=== PATIENT | male | born 1990 | race Caucasian/White ===

== ENCOUNTER 2021-03-09 11:48 | Emergency (ER) | payer SELFPAY ==
[2021-03-09 12:01] VITALS: BP 141/69; PULSE 80; RESP 20; TEMP 36.7; O2SAT 98
--- NOTE | 2021-03-09 12:33 | ED.WOUNDLAC ---
HPI - Wound/Laceration General Chief Complaint: Wound/Laceration Stated Complaint: cut finger Time Seen by Provider: 03/09/21 12:15 Source: patient and family Mode of arrival: ambulatory Limitations: no limitations History of Present Illness HPI narrative: Patient comes in with superficial wound to ring finger on the tip of the right hand. There is some very small amount of skin avulsion from the tip of that finger. He says this wound came from a circular saw. Nothing I see looks as though it requires sutures. He evidently came in thinking he needed sutures, but wound is quite superficial, and looks clean. THis evidently happened from a circular saw barely touching his finger. He had a previous laceration from a circular saw that cut the bone and required sutures. It is evident he thought this was a similar wound. No other signs or symptoms. Onset (ago): minute(s) Location: other (finger) Patient tetanus UTD: No (He refuses tetnas now) Associated symptoms: none Related Data Home Medications Medication Instructions Recorded Confirmed No Home Medications 03/09/21 03/09/21 Allergies Allergy/AdvReac Type Severity Reaction Status Date / Time No Known Allergies Allergy Unverified 03/09/21 12:06 Review of Systems Constitutional: Constitutional: Reports no additional constitutional complaints Eyes: Eyes: Reports no additional eye complaints ENT: Reports system reviewed and no additional complaints, except as documented Cardiovascular: Cardiovascular: Reports no additional cardiovascular complaints Respiratory: Respiratory: Reports no additional respiratory complaints Gastrointestinal: Gastrointestinal: Reports no additional gastrointestinal complaints Genitourinary: Genitourinary: Reports no additional male genitourinary complaints Musculoskeletal: Musculoskeletal: Reports no additional musculoskeletal complaints Integumentary/Breasts: Skin/Breast: Reports system reviewed and no additional complaints, except as docu Neurologic: Reports system reviewed and no additional complaints, except as documented Psychiatric: Psychiatric: Reports no additional psychiatric complaints Endocrine: Endocrine: Reports no additional endocrine complaints Hematologic/Lymphatic: Hematologic/Lymphatic: Reports no additional hematologic/lymphatic complaints Allergic/Immunologic: Allergic/Immunologic: Reports no additional allergic/immunologic complaints FORMERLY [facility], 1928–1983 Past Medical History Medical History (Updated 03/09/21 @ 20:12 by Marcin Lambert MD) Finger laceration No significant medical problems Family History Family History (Updated 03/09/21 @ 20:12 by Marcin Lambert MD) Other No significant family history Social History Social History (Updated 03/09/21 @ 20:13 by Marcin Lambert MD) Smoking status: Never smoker Alcohol intake: current Alcohol use details: minimal Living arrangements: with family Gender identity (if verbalized by the patient): Male Sexual Orientation (if Verbalized by the Patient): Straight or Heterosexual Exam Const: General: no acute distress Orientation/consciousness: patient oriented x3 HENMT: Head: normal to inspection Ears: external ears normal General nose exam: Normal external nose present Mouth: Yes Normal oral and palatal mucosa present Throat: posterior oropharynx normal Eyes: Conjunctivae: conjunctivae normal Neck: Neck: normal visual inspection Chest: Chest palpation & inspection: normal inspection of the chest Resp: Effort & Inspection: normal respiratory effort Auscultation: clear to auscultation bilaterally Cardio: Rate: regular rate Rhythm: regular rhythm GI: GI Palp: Yes Soft to palpation (non tender) Skin: General skin exam: normal color and other (skin wound on middle finger has some skin missing from avulsion, ) Lesions: other (laceration does not dded suturing) Neuro: General: patient oriented x3 and moves all extremities Extrem: General:
[2021-03-09 12:38] VITALS: BP 142/76; PULSE 79; RESP 20; TEMP 36.9; O2SAT 97
== END 2021-03-09 12:53 | disposition home or self-care (01) ==
PROVIDERS: Emergency Provider Emergency Medicine
DX: S61.214A Laceration without foreign body of right ring finger without damage to nail, initial encounter (principal); W27.8XXA Contact with other nonpowered hand tool, initial encounter
CPT/HCPCS: 99282